=== PATIENT | male | born 1965 | race Two or more races ===

== ENCOUNTER 2020-06-11 15:34 | Emergency (ER) | payer MEDICAID ==
[~2020-06-11] VITALS: Ht 180.3 cm; Wt 91.6 kg
--- NOTE | 2020-06-11 16:08 | NUR ---
sharon from home to er bed 7. [id number]. not in resp distress. ambulatory. brought in today for dizzyness. pt states that he has been waking up dizzy with room spinning. pt also states that he has been having stiffness on his neck. awaiting md for evgillian.
[2020-06-11 16:38] LABS: BASOPHILS # (AUTO) 0.1 /CMM (0.0-0.2); BASOPHILS % (AUTO) 0.3 % (0.0-2.0); EOSINOPHILS % (AUTO) 0.1 % (0.0-6.0); HEMATOCRIT 51 % (39-51); HEMOGLOBIN 17.3 g/dL (13.5-17.5); LYMPHOCYTES # (AUTO) 0.9 /CMM (0.8-4.8); LYMPHOCYTES % (AUTO) 4.7 % (20.0-44.0); MEAN CORPUSCULAR HGB CONC 34 g/dl (31.0-36.0); MEAN CORPUSCULAR VOLUME 90 fL (80-96); MONOCYTES # (AUTO) 1.2 /CMM (0.1-1.30); MONOCYTES % (AUTO) 6.6 % (2.0-12.0); NEUTROPHILS % (AUTO) 88.3 % (43.0-81.0); PLATELET COUNT (AUTO) 325 /CMM (150-450); WHITE BLOOD COUNT (AUTO) 18.2 K/uL (4.3-11.0)
[2020-06-11 16:51] LABS: ALBUMIN 4.3 g/dL (3.4-5.0); BILIRUBIN,DIRECT 0.4 mg/dL (0.0-0.2); BILIRUBIN,TOTAL 2.6 mg/dL (0.2-1.0); CALCIUM, SERUM 10.1 mg/dL (8.5-10.1); CREATININE 1.2 mg/dL (0.6-1.3); POTASSIUM 3.6 mmol/L (3.5-5.1); TOTAL PROTEIN, SERUM 8.9 g/dL (6.4-8.2)
[2020-06-11 17:04] LABS: ALCOHOL, BLOOD < 3 mg/dL (0-0); MAGNESIUM 2.2 mg/dL (1.8-2.4)
[2020-06-11 17:47] LABS: THYROID STIMULATING HORMONE 1.042 uIU/mL (0.358-3.74)
--- NOTE | 2020-06-11 19:58 | NUR ---
Patient does not wish to proceed with medical care recommended by Dr. Cole. Patient given information related to possible complications, up to and including , which could occur as a result of leaving the hospital at this time. Patient verbalizes understanding of risks involved due to leaving against medical advice. Patient has signed AMA form.
[2020-06-11] MEDS: IV NS 0.9% 1,000 ML IV ONE (19:59)
--- NOTE | 2020-06-11 19:59 | NUR ---
pt refused to 1l ns iv. aware
[2020-06-11 20:01] VITALS: BP 170/98
== END 2020-06-11 20:01 | disposition left against medical advice (07) ==
LOC: ER 15:42
DX: R42 Dizziness and giddiness (principal); E86.0 Dehydration; D72.829 Elevated white blood cell count, unspecified; R17 Unspecified jaundice; Z20.828 Contact with and (suspected) exposure to other viral communicable diseases; R00.0 Tachycardia, unspecified; R94.31 Abnormal electrocardiogram [ECG] [EKG]; M54.2 Cervicalgia
CPT/HCPCS: 36415; 70450; 80048; 80076; 80307; 80320; 83735; 84439; 84443; 84484; 85025; 85730; 93005; 99285; C9803; U0003; G0480